=== PATIENT | female | born 1980 | race Caucasian/White ===

== ENCOUNTER 2017-04-03 21:20 | Emergency (ER) | payer MEDICARE, MEDICAID ==
[2017-04-03 22:05] LABS: KETONE, URINE AUTO RFX NEGATIVE (NEGATIVE); NITRITE, URINE AUTO RFX NEGATIVE (NEGATIVE); RBC, URINE AUTO RFX TNTC /HPF (0-3); SPECIFIC GRAVITY UR AUTO RFX 1.015 (1.002-1.035); SQUAM EPITHELIAL CELL UR AURFX 3 /HPF (0-6)
[2017-04-03 22:06] LABS: LEUKOCYTE ESTERASE UR AUTO RFX 3+ (NEGATIVE); WBC, URINE AUTO RFX TNTC /HPF (0-3)
[2017-04-03] MEDS: PHENAZOPYRIDINE 100 MG TAB PO (22:45)
[2017-04-03] MEDS: CIPROFLOXACIN 500 MG TAB PO (22:45)
== END 2017-04-03 23:23 | disposition home or self-care (01) ==
LOC: M ED 21:20
DX: N30.90 Cystitis, unspecified without hematuria (principal); Z79.899 Other long term (current) drug therapy
CPT/HCPCS: 81001

== ENCOUNTER 2018-03-25 17:15 | Emergency (ER) | payer MEDICARE, MEDICAID ==
[~2018-03-25] VITALS: Ht 165.1 cm; Wt 60.0 kg
[~2018-03-25 17:15] MED LIST: CELE20TA PO; CIPR-249 PO; PYRI1TAB5 PO; VALT1TAB PO
[2018-03-25] MEDS ORDERED: PROZ10CA7 PO (17:28)
[2018-03-25] MEDS ORDERED: TOPA1TAB PO (17:28)
[2018-03-25 18:55] LABS: BASO % 0.6 % (0.0-1.0); EOS # 0.3 10^3/uL (0.0-0.50); EOS % 3.4 % (0.0-3.0); HEMOGLOBIN 13.8 g/dl (12.0-15.5); LYMPH # 1.9 10^3/uL (1.5-4.5); LYMPH % 25.7 % (24.0-44.0); MEAN CORPUSCULAR HEMOGLOBIN 34.5 pg (27.0-33.0); MEAN CORPUSCULAR HGB CONC 32.9 g/dl (32.0-36.5); MONO # 0.6 10^3/uL (0.0-0.8); MONO % 7.7 % (0.0-5.0); NEUTROPHILS # 4.5 10^3/uL (1.8-7.7); NEUTROPHILS % 61.8 % (36.0-66.0); PLATELET COUNT, AUTOMATED 262 10^3/uL (150-450); WHITE BLOOD COUNT 7.3 10^3/uL (4.0-10.0)
[2018-03-25 19:30] LABS: HCG, SERUM QUALITATIVE NEGATIVE (NEGATIVE)
[2018-03-25 19:45] LABS: ALT/SGPT 19 U/L (12-78); BILIRUBIN,DIRECT < 0.1 MG/DL (0.0-0.2); BILIRUBIN,TOTAL 0.2 MG/DL (0.2-1.0); BLOOD UREA NITROGEN 16 MG/DL (7-18); CALCIUM LEVEL 8.2 MG/DL (8.5-10.1); CARBON DIOXIDE LEVEL 23 MEQ/L (21-32); CHLORIDE LEVEL 110 MEQ/L (98-107); CREATININE FOR GFR 0.64 MG/DL (0.55-1.30); GLOMERULAR FILTRATION RATE > 60.0 (>60); GLUCOSE, FASTING 134 MG/DL (70-100); LIPASE 219 U/L (73-393); POTASSIUM SERUM 4.1 MEQ/L (3.5-5.1); SODIUM LEVEL 139 MEQ/L (136-145); TOTAL PROTEIN 7.1 GM/DL (6.4-8.2)
--- NOTE | 2018-03-25 21:32 | REPVR ---
EXAM: CT Abdomen and Pelvis Without Contrast EXAM DATE/TIME: 03/25/2018 8:51 PM CLINICAL HISTORY: 37 years old, female; Pain; Abdominal pain; Localized; Lower; Additional info: Lower abd pain/flank pain TECHNIQUE: Axial computed tomography images of the abdomen and pelvis without contrast. All CT scans at this facility use at least one of these dose optimization techniques: automated exposure control; mA and/or kV adjustment per patient size (includes targeted exams where dose is matched to clinical indication); or iterative reconstruction. Coronal and sagittal reformatted images were created and reviewed. COMPARISON: No relevant prior studies available. FINDINGS: Lower thorax: No acute findings. ABDOMEN: Liver: Normal. No mass. Gallbladder and bile ducts: Normal. No calcified stones. No ductal dilation. Pancreas: Normal. No ductal dilation. Spleen: Normal. No splenomegaly. Adrenals: Normal. No mass. Kidneys and ureters: Normal. No hydronephrosis. Stomach and bowel: Mild stool throughout the colon. Appendix: A normal appendix is seen. PELVIS: Bladder: Unremarkable as visualized. Reproductive: Retroverted uterus. ABDOMEN and PELVIS: Intraperitoneal space: Normal. No free air. No significant fluid collection. Bones/joints: No acute fracture. No dislocation. Soft tissues: Unremarkable. Vasculature: Normal. No abdominal aortic aneurysm. Lymph nodes: Normal. No enlarged lymph nodes. IMPRESSION: Negative CT abdomen/pelvis. No renal or ureteral calculi are evident and there is no evidence of obstructive uropathy. Electronically signed by: Daniel Padilla On 03/25/2018 21:32:41 PM
--- NOTE | 2018-03-25 21:39 | REPVR ---
EXAM: US Pelvis Complete, transvaginal EXAM DATE/TIME: 03/25/2018 9:08 PM CLINICAL HISTORY: 37 years old, female; Pain; Pelvic pain; Additional info: Pelvic pain/vaginal bleeding TECHNIQUE: Real-time transvaginal pelvic ultrasound with image documentation. Complete exam. COMPARISON: CT ABD PELVIS W/O CONTRAST 03/25/2018 8:40 PM FINDINGS: Uterus/cervix: The uterus measures 7.3 cm in its cephalocaudad dimension and 3.8 x 5.2 cm in its AP and lateral dimensions. The endometrium measures 6 mm. Small complex nodule adjacent to the endometrium measuring 4 x 6 x 7 mm each may reflect a submucosal fibroid. Right adnexa: The right ovary measures 2.9 x 1.6 x 1.3 cm and demonstrates blood flow and a small paraovarian cyst measuring 16 x 9 x 11 mm. Left adnexa: The left ovary measures 2.7 x 1.2 x 1.8 cm and demonstrates blood flow. Free fluid: None. IMPRESSION: 1. Small complex nodule adjacent to the endometrium measuring 4 x 6 x 7 mm which may reflect a small submucosal fibroid. 2. Right paraovarian cyst measuring 16 x 9 x 11 mm. 3. Otherwise negative pelvic sonogram. Electronically signed by: Daniel Padilla On 03/25/2018 21:39:41 PM
[2018-03-25] MEDS ORDERED: KETO10TAB PO (22:10)
[2018-03-25 22:30] VITALS: BP 111/74
[2018-03-25] MEDS ORDERED: KETOROLAC TROMETHAMINE 10 MG TAB PO ONE (22:30)
--- NOTE | 2018-03-26 12:28 | ED PDOC ---
Post-Departure Follow-Up certitied letter sent to pt re formal read of pelvic us. ask pt who bearingizer or pcp i s and then fax report.none listed in chart Shaka Jerome MD Mar 26, 2018 12:28
== END 2018-03-25 22:30 | disposition home or self-care (01) ==
LOC: M ED 17:15
DX: N83.201 Unspecified ovarian cyst, right side (principal); D25.9 Leiomyoma of uterus, unspecified